=== PATIENT | male | born 1955 | race Caucasian/White ===

== ENCOUNTER 2016-08-11 06:48 | Day surgery (SDC) | payer MEDICARE ==
[2016-08-10 12:14] LABS: HEMATOCRIT 45.7 % (42.0-54.0); HEMOGLOBIN 15.9 g/dL (13.5-17.5); MCH 31.5 pg (26.0-34.0); MCHC 34.8 g/dL (31.0-37.0); MCV 90.5 fL (80.0-100.0); MEAN PLATELET VOLUME 9.5 fL (7.4-10.4); RBC 5.05 10x6/uL (4.20-6.10); RDW 13.8 % (11.5-14.5); WBC 6.9 10x3/uL (4.8-10.8)
[2016-08-10 12:44] LABS: CALC OSMOLALITY 270 mosm/kg (275-300); CALCIUM 9.6 mg/dL (8.5-10.1); CARBON DIOXIDE 31.8 mmol/L (21.0-32.0); CHLORIDE - SERUM 97 mmol/L (98-107); GLUCOSE 107 mg/dL (74-106); POTASSIUM - SERUM 3.9 mmol/L (3.5-5.1); SODIUM 136 mmol/L (136-145); UREA NITROGEN 10 mg/dL (7-18); eGFR NON AFRICAN AMERICAN 81 mL/min (90-120)
[~2016-08-11] VITALS: Ht 172.7 cm; Wt 74.8 kg
[~2016-08-11 06:48] MED LIST: CYCLOBENZAPRINE10 MG PO; EFFEXOR XR150 MG PO; HCTZ25 MG PO; HYDROCODONE-APA1 TAB PO; METOPROLOL TART50 MG PO; NORVASC10 MG PO; OXY IR30 MG PO; XANAX0.25 MG PO; ZYLOPRIM300 MG PO
[2016-08-11 07:00] VITALS: BP 122/74; Ht 172.7 cm; Wt 74.8 kg
[2016-08-11] MEDS ORDERED: HYDROCODONE-APA1 TAB PO (10:16)
--- NOTE | 2016-08-11 11:45 | NUR ---
DISCHARGE INSTRUCTIONS REVIEWED WITH PATIENT. DISCHARGED HOME VIA WHEELCHAIR TO [facility]
--- NOTE | 2016-08-18 12:19 | OP ---
PATIENT NAME: CATE KELLY JR MEDICAL RECORD: [id number] LOCATION:[facility] ADMISSION DATE: SURGEON: HUBER BARRIGA MD DATE OF OPERATION: 08/11/2016 PREOPERATIVE DIAGNOSES: Right shoulder impingement, right shoulder acromioclavicular joint degenerative joint disease with possible rotator cuff tear. POSTOPERATIVE DIAGNOSES: Right shoulder impingement, right shoulder acromioclavicular joint degenerative joint disease with a very large subacromial and subclavicular spur. PROCEDURE PERFORMED: Distal clavicle excision and subacromial decompression. SURGEON: Oliver Barriga MD. ANESTHESIA: General with interscalene block for postop pain. CONDITION: He tolerated the procedure well, was transferred to the recovery room in stable condition at termination of procedure. INDICATIONS: This is a pleasant 60-year-old gentleman who has been having significant pain in his shoulder. He has had weakness, problems elevating his arm, finding is consistent with a cuff tear. He also had significant findings with AC joint degenerative joint disease and impingement. We discussed options and elected to proceed with a shoulder arthroscopy and repair. We discussed risks, benefits, and alternatives. He understood and wished to proceed. OPERATIVE REPORT: The patient was taken to the operating room and placed in supine position. General anesthesia was obtained. He did get the interscalene block in the preop holding area. In the operating room, he was placed in a beach chair position. His right shoulder was then prepped and draped in normal fashion. Portal sites were marked and injected with 0.25% Marcaine with epinephrine. Once this was accomplished, I then proceeded to place the scope and into the posterior portal and then under direct visualization, I established an anterior portal. Visualizing, he had the subscapularis was notably intact. He had a biceps tendon coming up into the top of the glenoid and labral area and there were no lesions noted on this. There is some minor labral tearing, which could be consistent with his age. Following the cuff, I had very good visualization of the cuff from front to back. There was no tear noted in the cup. There was certainly some thinning, some of the anterior fibers, no junction did this ____ where I could get a good any kind of indication that this was even close to being completely off of the bone; therefore, I debrided some of the labrum. I then pulled the scope out, placed it in the subacromial space, made a lateral portal. I did use the cautery to remove much of the synovium and subacromial area. He had very large spur extending down off of his acromion and a very large spur extending down off of his clavicle. These are both excised with the bur as well as the distal clavicle opening the space between the two. Again, inspected the cuff from this surface and I could not find anything that even appeared close to being torn; therefore, I did the DCE and SAD and brought the case to a close. He was awakened and transferred to recovery room in stable condition, having tolerated the procedure well. TRANSINT:[id number] Voice Confirmation ID: [id number] DOCUMENT ID: [id number] OPERATIVE REPORT [id number] CATE KELLY, HUBER GILL MD at 1219 CC: [id number] DICTATION DATE: 08/11/16 1004 [address] OPERATOR: 08/11/[address] [facility] 08/11/16 [facility] [address] [place] [address]
== END 2016-08-11 11:45 | disposition home or self-care (01) ==
LOC: D.OPS 06:48 → D.PAN 08:00 → D.OPS 08:30 → D.PAN 11:45
PROVIDERS: Anesthesiology
DX: M75.41 Impingement syndrome of right shoulder (principal); M19.011 Primary osteoarthritis, right shoulder; M75.81 Other shoulder lesions, right shoulder

== ENCOUNTER 2016-09-19 19:21 | Emergency (ER) | payer MEDICARE ==
[2016-08-11 07:00] VITALS: BMI 25.1
== END 2016-09-19 21:12 | disposition home or self-care (01) ==
LOC: D.ER 19:21
DX: K04.7 Periapical abscess without sinus (principal); K02.9 Dental caries, unspecified; K08.89 Other specified disorders of teeth and supporting structures; I10 Essential (primary) hypertension; F17.200 Nicotine dependence, unspecified, uncomplicated